=== PATIENT | male | born 1970 | race Caucasian/White ===

== ENCOUNTER → 2017-09-09 | Outpatient (CLI) | payer OTHER | END | disposition home or self-care (01) | LOC: RADMRIMAIN 14:33 | PROVIDERS: ATTEND Orthopaedic Surgery | DX: Z53.9 Procedure and treatment not carried out, unspecified reason (principal) ==

== ENCOUNTER → 2018-06-28 | Outpatient (CLI) | payer OTHER ==
--- NOTE | 2018-06-28 23:11 | XR ---
EXAMINATION TYPE: XR chest 2V DATE OF EXAM: 06/28/2018 COMPARISON: None HISTORY: 47-year-old male unspecified asthma, shortness of breath for one week TECHNIQUE: Frontal and lateral views FINDINGS: The cardiomediastinal silhouette, aorta, and pulmonary vasculature are within normal limits. There is mild central peribronchial cuffing noted. Tiny atelectasis lower lungs. No consolidation or pleural effusion. IMPRESSION: Mild peribronchial cuffing can be seen with bronchitis or asthma. No focal infiltrate.
== END | disposition home or self-care (01) ==
LOC: RADXRMAIN 17:36
PROVIDERS: ATTEND Family Medicine
DX: R91.8 Other nonspecific abnormal finding of lung field (principal)
CPT/HCPCS: 71046

== ENCOUNTER → 2018-10-29 | Outpatient (CLI) | payer OTHER ==
[2018-10-29 10:01] LABS: HCT 45.9 % (39.0-53.0); MCH 30.7 pg (25.0-35.0); MCHC 32.7 g/dL (31.0-37.0); MCV 93.9 fL (80.0-100.0); Mean Platelet Volume 6.4; Platelet Count 279 k/uL (150-450); RBC 4.89 m/uL (4.30-5.90); WBC 4.7 k/uL (3.8-10.6)
[2018-10-29 10:17] LABS: Appearance,Urine Clear (Clear); Bilirubin,Urine Negative (Negative); Blood,Urine Negative (Negative); Color,Urine Light Yellow; Glucose,Urine (UA) Negative (Negative); Ketones,Urine Negative (Negative); Leukocyte Esterase,Urine Negative (Negative); Nitrite,Urine Negative (Negative); Protein,Urine Negative (Negative); Specific Gravity,Urine 1.009 (1.001-1.035); Urobilinogen,Urine <2.0 mg/dL (<2.0)
[2018-10-29 17:50] LABS: Albumin 4.2 g/dL (3.80-4.90); Albumin/Globulin Ratio 2.33 (1.20-2.10); Anion Gap 6.5 mmol/L (4.00-12.00); Carbon Dioxide 28.5 mmol/L (21.6-31.8); Globulin 1.8 g/dL (2.1-3.7); Potassium 4.6 mmol/L (3.5-5.5); Total Bilirubin 0.5 mg/dL (0.2-1.2)
[2018-10-29 19:57] LABS: Hemoglobin A1C 5.6 % (4.0-6.0)
== END | disposition home or self-care (01) ==
LOC: LABWHC1 09:26
PROVIDERS: ATTEND Family Medicine
DX: J45.909 Unspecified asthma, uncomplicated (principal); E66.01 Morbid (severe) obesity due to excess calories; K21.0 Gastro-esophageal reflux disease with esophagitis; F32.89 Other specified depressive episodes; N39.0 Urinary tract infection, site not specified; Z12.5 Encounter for screening for malignant neoplasm of prostate
CPT/HCPCS: 36415; 80053; 81003; 83036; 84153; 84439; 84443; 85027

== ENCOUNTER → 2019-07-25 | Outpatient (CLI) | payer OTHER ==
--- NOTE | 2019-07-25 15:38 | XR ---
EXAMINATION TYPE: XR lumbosacral spine min 4V DATE OF EXAM: 07/25/2019 CLINICAL HISTORY: Chronic low back pain with no known injury TECHNIQUE: Frontal, lateral, and oblique images of the lumbar spine are obtained. COMPARISON: None FINDINGS: There are 5 lumbar type vertebral bodies identified. The lumbar spine shows satisfactory alignment without evidence of acute fracture or dislocation. Vertebral body heights and disk space he ights are within normal limits. There are multilevel anterior osteophytes nearly bridging the lumbar vertebral bodies. Mild facet arthropathy from L3 through S1. The oblique images demonstrate mild jarrell ral foraminal narrowing at L4-L5 bilaterally. The overlying soft tissue appears unremarkable. IMPRESSION: 1. No acute fracture or dislocation is seen in the lumbar spine. 2. Mild to moderate multilevel degenerative disc disease resulting in mild bilateral neural foraminal narrowing at L4-L5. This could be better evaluated with MRI.
== END | disposition home or self-care (01) ==
LOC: RADXRMAIN 15:05
PROVIDERS: ATTEND Family Medicine
DX: M48.07 Spinal stenosis, lumbosacral region (principal); M51.37 Other intervertebral disc degeneration, lumbosacral region
CPT/HCPCS: 72110

== ENCOUNTER → 2020-04-18 | Outpatient (CLI) | payer OTHER ==
--- NOTE | 2020-04-18 13:33 | US ---
EXAMINATION TYPE: US venous doppler duplex LE RT DATE OF EXAM: 04/18/2020 1:07 PM COMPARISON: NONE CLINICAL HISTORY: 49-year-old male R22.41 Localized swelling, mass and lump, right lo. Right calf sor e to the touch x couple weeks SIDE PERFORMED: Right TECHNIQUE: The lower extremity deep venous system is examined utilizing real time linear array sonog willian with graded compression, doppler sonography and color-flow sonography. FINDINGS: VESSELS IMAGED: External Iliac Vein (EIV) Common Femoral Vein Deep Femoral Vein Greater Saphenous Vein * Femoral Vein Popliteal Vein Small Saphenous Vein * Proximal Calf Veins (* superficial vessels) Right Leg: Appears negative for DVT. However, the exam is positive for SVT with thrombus seen at the medial aspect of the lower leg involving a superficial vein IMPRESSION: 1. No evidence for DVT within the right lower extremity imaged from the groin to the upper calf. 2. However, the exam is positive for SVT (involving a superficial subcutaneous vein) along the medial aspect of the lower leg.
== END | disposition home or self-care (01) ==
LOC: RADUSWWP 12:38
PROVIDERS: ATTEND Family Medicine
DX: I47.1 Supraventricular tachycardia (principal); R22.41 Localized swelling, mass and lump, right lower limb

== ENCOUNTER → 2020-11-18 | Outpatient (CLI) | payer OTHER ==
--- NOTE | 2020-11-18 18:53 | CT ---
EXAMINATION TYPE: CT abdomen pelvis w con DATE OF EXAM: 11/18/2020 COMPARISON: CT abdomen and pelvis April 12, 2015 HISTORY: DVT lower extremities, swelling. CT DLP: 3057.6 mGycm, Automated Exposure Control for Dose Reduction was Utilized. CONTRAST: CT scan of the abdomen and pelvis is performed with oral and with IV Contrast, patient injected with 100ml mL of Isovue 300. FINDINGS: Exam suboptimal secondary to patient's large body habitus. LUNG BASES: Anterior left basilar linear scarring and/or atelectasis. LIVER/GB: No significant abnormality is appreciated. PANCREAS: No significant abnormality is seen. SPLEEN: No significant abnormality is seen. ADRENALS: No significant abnormality is seen. KIDNEYS: No significant abnormality is seen. BOWEL: Oral contrast does not reach colonic level. No suspicious small or large bowel dilatation. Occ asional distal colonic diverticula. PROSTATE/SEMINAL VESICLES: No gross abnormality seen. LYMPH NODES: No greater than 1cm abdominal or pelvic lymph nodes are appreciated. OSSEOUS STRUCTURES: Slight grade 1 retrolisthesis L3 on L4 and grade 1 anterolisthesis L5 on S1. Mode rate multilevel spurring in the spine. OTHER: Moderate to large size fat-containing ventral wall hernia new from prior study. IMPRESSION: No suspicious mass or adenopathy. No intra-abdominal ascites. No acute findings are evid ent.
== END | disposition home or self-care (01) ==
LOC: RADCTMAIN 16:24
PROVIDERS: ATTEND Internal Medicine Hematology & Oncology
DX: R94.5 Abnormal results of liver function studies (principal); Z88.2 Allergy status to sulfonamides
CPT/HCPCS: 74177; Q9967